=== PATIENT | male | born 1965 | race Caucasian/White ===

== ENCOUNTER 2023-03-13 11:52 | Emergency (ER) | payer OTHER ==
[2023-03-13] MEDS ORDERED: Metoprolol Tartrate 5 MG/5 ML SDV IVPUSH ONE (12:08)
[2023-03-13] MEDS ORDERED: Aspirin 81 MG Tab.Chew PO ONE (12:09)
[2023-03-13] MEDS ORDERED: hydrALAZINE 20 MG/ML SDV IVPUSH ONE ×2 (12:56→14:31)
[2023-03-13] MEDS ORDERED: Iopamidol 612 MG/ML 100 ML Bottle IVPUSH ONE (12:59)
[2023-03-13] MEDS ORDERED: Sodium Chloride 0.9% 10 ML Syringe FLUSH PRN (12:59)
[2023-03-13] MEDS ORDERED: Iopamidol 755 Mg/ML 100 ML Bottle IVPUSH ONE (13:04)
[2023-03-13] MEDS ORDERED: Sodium Chloride 0.9% 100 ML IV SCH (13:15)
[2023-03-13] MEDS ORDERED: amLODIPine 5 MG Tab PO ONE (17:37)
[2023-03-13] MEDS ORDERED: Lisinopril 20 MG Tab PO ONE (18:22)
== END 2023-03-13 18:34 | disposition home or self-care (01) ==
LOC: JD.ED 11:52
DX: I10 Essential (primary) hypertension (principal); Z79.899 Other long term (current) drug therapy
CPT/HCPCS: 36415; 71045; 71275; 83735; 84484; 85379; 93005; 96374; 96375; 96376; 99284; A9270; J0360; J3490; Q9967; 93010